=== PATIENT | male | born 1970 | race Caucasian/White ===

== ENCOUNTER 2022-03-03 06:12 | Day surgery (SDC) | payer MEDICAID ==
[~2022-03-03] VITALS: Ht 172.7 cm; Wt 86.2 kg
[2022-03-03] MEDS ORDERED: MEPERIDINE 100 MG INJ. 100 MG/ML VIAL ONE (09:03)
[2022-03-03] MEDS ORDERED: MIDAZOLAM HCL 5 MG/5 ML VIAL ONE (09:03)
[2022-03-03] MEDS ORDERED: DIPHENHYDRAMINE INJ 50 MG/ML VIAL ONE ×2 (09:03)
[2022-03-03 15:28] VITALS: BP_SYST 129
== END 2022-03-03 10:40 | disposition home or self-care (01) ==
LOC: SDS 06:12 → SMU 06:12 → SDS 10:40
PROVIDERS: ATTEND Internal Medicine Gastroenterology
DX: K92.1 Melena (principal); K52.9 Noninfective gastroenteritis and colitis, unspecified; K64.9 Unspecified hemorrhoids; Z98.0 Intestinal bypass and anastomosis status; K76.0 Fatty (change of) liver, not elsewhere classified; I10 Essential (primary) hypertension; K83.8 Other specified diseases of biliary tract; Z79.899 Other long term (current) drug therapy
CPT/HCPCS: 36415 ×2; 45380; 87426; 88305; 99152; U0003; G0378; J1200; J2250; J2175